=== PATIENT | female | born 1925 | race Caucasian/White ===

== ENCOUNTER 2017-03-05 07:51 | Emergency (ER) | payer SELFPAY ==
--- NOTE | 2017-03-05 08:16 | Emergency Department Record ---
History of Present Illness - General Chief Complaint: Difficulty Breathing Stated Complaint: SIA Time Seen by Provider: 03/05/17 08:04 Source: Patient Mode of Arrival: EMS Limitations: No limitations - History of Present Illness Initial Comments: The patient is here due to "not feeling right" this AM. It seems the patient recently placed her in a half-way and today she woke up and felt something may be wrong. She denied any SOB, CP, SIA, or CHRISTOPHER but due to being worried about her health she called 911. EMS found the patient anxious but very stable so they brought her to the ER. Presently the patient feels better and denies any pain, discomfort, breathing problems or any anxiety. MD Complaint: Anxiety Onset/Timin -: Hour(s), Unknown Severity: Moderate Improves With: Nothing Worsens With: Nothing Associated Symptoms: Denies other symptoms Treatments Prior to Arrival: None - Related Data Home Oxygen Therapy: No Home Medications Medication Instructions Recorded Confirmed Last Taken Amoxicillin 500Mg Capsule [Amoxil] 500 mg PO TID 03/05/17 03/05/17 Unknown Baclofen 10 mg PO ASDIR 03/05/17 03/05/17 Unknown Escitalopram Oxalate [Lexapro] 10 mg PO DAILY 03/05/17 03/05/17 Unknown Levothyroxine Sodium 125 mcg PO DAILY 03/05/17 03/05/17 Unknown Allergies Allergy/AdvReac Type Severity Reaction Status Date / Time No Known Drug Allergies Allergy Verified 03/05/17 08:03 Travel Screening - Travel/Exposure Within Last 30 Days Have you traveled within the last 30 days?: No Review of Systems Constitutional: Denies: Chills, Fever Eyes: Denies: Eye discharge ENT: Denies: Congestion Respiratory: Denies: Cough, Dyspnea Cardiovascular: Denies: Arrhythmia, Chest pain Past Medical History - SOCIAL HISTORY Smoking Status: Never smoker Alcohol Use: None Drug Use: None - RESPIRATORY Hx Respiratory Disorders: No - CARDIOVASCULAR Hx Cardio Disorders: No - NEURO Hx Neuro Disorders: No - GI Hx GI Disorders: No - Hx Genitourinary Disorders: No - ENDOCRINE Hx Endocrine Disorders: Yes Hx Thyroid Disease: Yes - MUSCULOSKELETAL Hx Musculoskeletal Disorders: No - PSYCH Hx Psych Problems: Yes Hx Anxiety: Yes Hx Depression: Yes - HEMATOLOGY/ONCOLOGY Hx Hematology/Oncology Disorders: No Family Medical History Any Significant Family History?: No Physical Exam - General General Appearance: Alert, Oriented x3, Cooperative, No acute distress - Head Head exam: Atraumatic, Normocephalic, Normal inspection - Eye Eye exam: Normal appearance, PERRL - ENT Throat exam: Normal inspection. negative: Tonsillar erythema, Tonsillar exudate - Neck Neck exam: Normal inspection, Full ROM. negative: Tenderness - Respiratory Respiratory exam: Normal lung sounds bilaterally. negative: Decreased breath sounds, Respiratory distress, Wheezes - Cardiovascular Cardiovascular Exam: Regular rate, Normal rhythm, Normal heart sounds. negative : Diastolic murmur, Systolic murmur - GI/Abdominal GI/Abdominal exam: Soft, Normal bowel sounds. negative: Tenderness - Extremities Extremities exam: Normal inspection, Full ROM, Normal capillary refill. negative: Tenderness - Neurological Neurological exam: Alert, Normal gait. negative: Abnormal gait, Motor sensory deficit Course Vital Signs 03/05/17 07:55 Temperature 98.4 F Pulse Rate 81 Respiratory 20 Rate Blood Pressure 147/76 Pulse Ox 99 - Reevaluation(s) Reevaluation #1: The patient is doing very well at this time. It seems the patient received Baclofen at the PCP's office a few days ago. Her daughter believes the medicine is making her feel funny. 03/05/17 08:49 Reevaluation #2: The patient is doing a little better. She did have another episode of the discomfort but she is having difficulty putting words to the complaint. Per her daughters the patient is not acting herself and they believe it may be due to the baclofen she started. The 2nd EKG was WNL's with no acute changes. 03/05/17 09:44 03/05/17 09:45 Medical Decision Making - Data Complexity MDM Data: Labs Ordered and/or Reviewed, X-Ray Ordered and/or Reviewed, EKG Ordered and/or Reviewed - Lab Data Result diagrams: 03/05/17 08:13 03/05/17 08:00 - EKG Data -: EKG Interpreted by Me EKG: No Acute Changes, Unchanged From Previous - Radiology Data Radiology results: Report reviewed (CXR: neg) Disposition Disposition: Admit Clinical Impression: Shortness of breath Disposition: Still a Patient at [facility] Decision to Admit: Admit from ER Decision to Admit Date: 03/05/17 Decision to Admit Time: 11:15 Accepting Physician: Marichuy Time Discussed w/Accepting Physician: 11:15 Condition: (2) Stable Forms: Patient Portal Access Time of Disposition: 11:15
[2017-03-05 08:17] LABS: BASO % 0.2 % (0-6); EOS % 5.3 % (0-6); GRAN % 55.6 % (47-80); HEMATOCRIT 36.4 % (35.0-47.0); HEMOGLOBIN 11.7 gm/dl (11.6-16.0); LYMPH % 26.9 % (16-45); MEAN CELL VOLUME 81.4 fl (81-97); MEAN CORPUSCULAR HEMOGLOBIN 26.2 pg (27-33); MEAN CORPUSCULAR HGB CONC 32.1 g/dl (32-36); MEAN PLATELET VOLUME 10.1 fl (7.4-10.4); PLATELET COUNT 201 K/uL (130-400); RED BLOOD COUNT 4.47 M/uL (3.80-5.40); RED CELL DISTRIBUTION WIDTH 15.1 % (11.5-14.5); WHITE BLOOD COUNT W/O DIFF 4.9 K/uL (4.2-12.2)
[2017-03-05 08:29] LABS: INR 0.94; PARTIAL THROMBOPLASTIN TIME 24.5 SECONDS (24.5-39.1); PROTHROMBIN TIME (PATIENT) 10.6 SECONDS (9.5-12.1)
[2017-03-05 08:30] LABS: ANION GAP 7.4 (7-16); BLOOD UREA NITROGEN 18 mg/dL (7-17); CARBON DIOXIDE 25.6 mmol/L (22-30); CREATINE PHOSPHOKINASE 32 U/L (30-135); CREATININE 0.9 mg/dL (0.52-1.04); EST GLOMERULAR FILTRATION RATE > 60 ml/min; GLUCOSE,RANDOM 109 mg/dL (70-110)
[2017-03-05 08:41] LABS: TROPONIN I 0.044 ng/mL (0.00-0.034)
== END 2017-03-05 08:35 | disposition still patient (30) ==
LOC: MERGE 07:51 → ER 07:51
DX: R06.02 Shortness of breath (principal)
CPT/HCPCS: 71020; 80048; 82550; 82553; 83880; 84484; 85025; 85610; 85730

== ENCOUNTER 2017-03-05 08:36 | Observation (INO) | payer MEDICARE ==
--- NOTE | 2017-03-05 09:02 | Emergency Department Record ---
History of Present Illness - General Chief Complaint: Shortness of breath Stated Complaint: SIA Time Seen by Provider: 03/05/17 08:43 Mode of Arrival: EMS - History of Present Illness -: Unknown Improves With: Nothing Worsens With: Nothing Associated Symptoms: Denies other symptoms Treatments Prior to Arrival: None - Related Data Home Oxygen Therapy: No Home Medications Medication Instructions Recorded Confirmed Last Taken Amoxicillin 500Mg Capsule [Amoxil] 500 mg PO TID 03/05/17 03/05/17 Unknown Allergies Allergy/AdvReac Type Severity Reaction Status Date / Time morphine AdvReac Intermediate VOMITING Verified 03/05/17 09:00 Travel Screening - Travel/Exposure Within Last 30 Days Have you traveled within the last 30 days?: No Past Medical History - SOCIAL HISTORY Smoking Status: Never smoker - RESPIRATORY Hx Respiratory Disorders: No - CARDIOVASCULAR Hx Cardio Disorders: Yes Hx Cardiac Cath: Yes (done 2013 -"heart was fine"-stress related) Comment:: hypercholesteremia - NEURO Hx Neuro Disorders: No - GI Hx GI Disorders: No - Hx Genitourinary Disorders: No - ENDOCRINE Hx Thyroid Disease: Yes - MUSCULOSKELETAL Hx Musculoskeletal Disorders: No - PSYCH Hx Psych Problems: No - HEMATOLOGY/ONCOLOGY Hx Hematology/Oncology Disorders: Yes Hx Cancer: Yes (skin) Hx Blood Transfusions: Yes Family Medical History Hx Heart Disease: Mother Course Vital Signs 03/05/17 08:40 Temperature 98.4 F Pulse Rate 81 Respiratory 20 Rate Blood Pressure 147/76 Pulse Ox 99 - Reevaluation(s) Reevaluation #1: The patient is doing very well at this time. She denies any pain or discomfort. It seems the Ativan helped her immensely and she feels much better at this time. She has no CP, SOB, or SIA and is resting comfortably. I did discuss the issues with Dr. Benedict and he does accept her admission to the hospital. 03/05/17 10:38 Disposition Disposition: Admit Clinical Impression: Shortness of breath Disposition: Still a Patient at [facility] Decision to Admit: Admit from ER Decision to Admit Date: 03/05/17 Decision to Admit Time: 10:40 Accepting Physician: Marichuy Time Discussed w/Accepting Physician: 10:40 Condition: (2) Stable Forms: Patient Portal Access Time of Disposition: 10:40
[2017-03-05] MEDS: LORAZEPAM 2 MG/ML VIAL IV ONE ×2 (09:29→09:33)
[2017-03-05 10:12] LABS: TROPONIN I 0.052 ng/mL (0.00-0.034)
[2017-03-05] MEDS ORDERED: ACETAMINOPHEN 500 MG TABLET PO PRN (11:48)
[2017-03-05] MEDS ORDERED: LORAZEPAM 2 MG/ML VIAL IV PRN (11:48)
[2017-03-05] MEDS: LEVOTHYROXINE SODIUM 125 MCG TABLET PO SCH (14:22)
[2017-03-05] MEDS: ESCITALOPRAM 10 MG TABLET PO SCH (14:22)
[2017-03-05 15:43] LABS: CKMB 1.1 ug/L (0-6); TROPONIN I 0.073 ng/mL (0.00-0.034)
[2017-03-05] MEDS ORDERED: AMOXICILLIN 500MG CAPSULE PO SCH (16:00)
[2017-03-05] MEDS: AMOXICILLIN 500 MG PO SCH (22:59)
[2017-03-06 00:35] LABS: CKMB 0.9 ug/L (0-6)
[2017-03-06 01:02] LABS: TROPONIN I 0.062 ng/mL (0.00-0.034)
[2017-03-06] MEDS: LEVOTHYROXINE SODIUM 125 MCG TABLET PO SCH (09:41)
[2017-03-06] MEDS: AMOXICILLIN 500 MG PO SCH (09:42)
[2017-03-06] MEDS: ESCITALOPRAM 10 MG TABLET PO SCH (09:42)
[2017-03-06] MEDS ORDERED: ESCITALOPRAM 10 MG TABLET PO SCH (10:15)
[2017-03-06] MEDS ORDERED: 0.9 % SODIUM CHLORIDE 10ML SYR IVP PRN (11:21)
--- NOTE | 2017-03-06 12:52 | Discharge Note ---
VTE H&P Assessment - Risk for VTE Risk for VTE: Yes Risk Level: Very Low Risk Assessment Date: 03/05/17 Risk Assessment Time: 11:00 VTE Orders Placed or Will Be Placed: No VTE Reason for No Prophylaxis: Not Indicated Discharge Medications - Discharge Medications Home Medications: Ambulatory Orders Amoxicillin 500Mg Capsule [Amoxil] 500 mg PO TID 03/05/17 [Last Taken Unknown] Discharge Note - Date Date of Discharge Note: 03/06/17 Condition: (2) Stable Forms: Patient Portal Access
--- NOTE | 2017-03-06 12:59 | Discharge Note ---
VTE H&P Assessment - Risk for VTE Risk for VTE: Yes Risk Level: Very Low Risk Assessment Date: 03/05/17 Risk Assessment Time: 11:00 VTE Orders Placed or Will Be Placed: No VTE Reason for No Prophylaxis: Not Indicated Discharge Medications - Discharge Medications Home Medications: Ambulatory Orders Amoxicillin 500Mg Capsule [Amoxil] 500 mg PO TID 03/05/17 [Last Taken Unknown] Discharge Note - Date Date of Discharge Note: 03/06/17 Condition: (2) Stable Additional Instructions: tylenol for pain 325mg every 6 hours follow up with Dr. Villanueva or Dr. Serra stop baclofen Referrals: Larisa Jones, NKaneP. [Primary Care Provider] - Forms: Patient Portal Access Activity at Discharge: Increase Activity as Tolerated Diet at Discharge: Regular Diet
[2017-03-07] MEDS ORDERED: LEVOTHYROXINE SODIUM 125 MCG TABLET PO SCH (07:00)
--- NOTE | 2017-03-07 10:27 | Discharge Summary ---
DATE OF ADMISSION: 03/05/2017 through the Emergency Department after being evaluated by Dr. Lindsey. DATE OF DISCHARGE: 03/06/2017 at 1700. This is an Observation Patient. DISCHARGE DIAGNOSES: 1. Decreased level of consciousness secondary to baclofen. 2. Adverse reaction to baclofen. 3. Indeterminant elevation of troponin I trending down on discharge. No signs of an MS. EKG showing no acute changes. CK-MB's were normal. 4. Osteoarthritis with deformity of the hands and total body pain from her arthritis. 5. Anxiety and depression because her is in assisted living and he wants to come home and she is getting a lot of stress from him. She cannot take care of him at home. 6. Hypothyroidism. 7. Dental infection, the right lower molar is infected, and on amoxicillin from the dentist 3 times a day 500 mg, and she has 3 more days to take it. I told her to finish the bottle when she gets home. ATTENDING PHYSICIAN: Rolf Benedict DO REASON FOR HOSPITALIZATION: This 89-year-old female was hyperventilating, short of breath, crying, tearful and confused, hallucinating according to the daughter, Tammi. She said that after taking the baclofen she may have taken a second dose according to the daughter, and this may have caused her to hallucinate and have problems with her mental status. She came into the Emergency Department and was given 1 mg of Ativan, which made her very sedated. She was admitted to the hospital for decreased level of consciousness, adverse reaction from baclofen, and indeterminant elevation of troponin I, which is trending down on the last dose of troponin I. Her CK-MB remained normal. Her EKGs remained normal. No acute changes. She has no chest pain or dyspnea. She does have total-body arthritic pain all over. She is not able to define exactly where the pain is. Her hands are deformed from the arthritis, and she aches all over. SIGNIFICANT FINDINGS FROM EXAMINATION: As stated, EKG showing no acute ST/T wave changes. The CK-MB's were normal. The troponin I's were indeterminant, trending down. THERAPY PROVIDED: The patient was observed. Vital signs were monitored. air sampling and monitoring. She is feeling much better today, walking around the room. She was able to feed herself, and she is tearful about her 's situation and she does not want to be home alone. The family member, Edith Peter, was in the room during my examination. She said somebody would stay with her or she would stay with one of the family members. There are 4 or 5 siblings around to help take care of her. HOSPITAL COURSE: Much improved. CONDITION ON DISCHARGE: Much improved. DISCHARGE INSTRUCTIONS: Followup with Dr. Lanier in 1 week. We are also going to set up an outpatient appointment with Dr. Rui Recio to do further cardiac testing as deemed necessary by the indeterminant elevation of troponin I. At this point, she could not walk on a treadmill. She is to follow up with Dr. Lanier or Ms. Jones in 1 week, Dr. Rui Recio when scheduled in the next week or two. Tylenol for pain only 325 mg 1 every 6 hours. Will stop the baclofen. Continue her levothyroxine 125 mcg daily. Continue the Lexapro 10 mg daily. Continue the amoxicillin 500 mg t.i.d. until gone. She has about 3 more days left in the bottle. Follow up with the dentist on that problem. CC: MD Larisa Taylor, JAKE TRIANA
--- NOTE | 2017-03-07 10:27 | History and Physical Report ---
DATE OF EVALUATION: 03/06/2017 DATE OF ADMISSION: 03/06/2017 CHIEF COMPLAINT: Confusion, decreased level of consciousness, and dyspnea. HISTORY OF PRESENT ILLNESS: This 89-year-old female was seen in the Emergency Department by Dr. Lindsey and totally evaluated in the Emergency Department by Dr. Lindsey. He called me to admit the patient because of troponin I's being in the indeterminant range and adverse reaction to baclofen medication. She possibly took a double or triple dose of the medication and was confused and disoriented, hallucinating. She was given baclofen by her primary doctor, Dr. Smyth, for back pain. She was initially, about a week ago, complaining of back and hip pain, and that is why the Ativan was started. She was also hyperventilating and having a panic attack when she came in the ER. Dr. Lindsey administered Ativan 1 mg IV, which sedated the patient for a long time, approximately 12 hours. This morning, she is acting very appropriately and back to herself. I went into the Emergency Department to evaluate her because she was being admitted in an observation status. She was sleeping. I woke her up. She was able to answer yes/no questions was all, and then she went back to sleep because of the baclofen and Ativan. Vital signs were stable. PAST MEDICAL HISTORY: She had a cardiac cath in 2013. Her heart was fine at that time. She also has hypercholesterolemia. She has some dizziness when she sits up quickly, most likely vasovagal dizziness. She has diverticulitis, GERD, hiatal hernia, hypothyroidism, rheumatoid and osteoarthritis, anxiety and depression, skin cancer, and she has had some blood transfusions in the past. PAST SURGICAL HISTORY: Hysterectomy, cholecystectomy, and melanoma surgery. MEDICATIONS ON ADMISSION: Levothyroxine 125 mcg daily, Lexapro 10 mg daily, the baclofen which was recently started 10 mg t.i.d., and she may have taken an extra dose of that, amoxicillin 500 mg t.i.d. I am not sure why she is on that. ALLERGIES: Morphine causes a vomiting reaction. Not a true allergy, mostly an adverse reaction. FAMILY PSYCHOSOCIAL HISTORY: Mother had heart disease. She never smoked. No alcohol or drug use. REVIEW OF SYSTEMS: (This was all obtained through the chart because she was too sedated to give any history). HEENT: No upper respiratory infection symptoms, cough, cold, or congestion. Cardiovascular: No chest pain, palpitations, or arrhythmias. Respiratory: No shortness of breath. Gastrointestinal: No nausea, vomiting, diarrhea, black stools, or bloody stools. Genitourinary: No dysuria, hematuria, frequency, or burning on urination. Musculoskeletal: She has arthritis. Neurologic: No CVA, paralysis, or paresthesias. Endocrine: She has hypothyroidism. No diabetes. Integument: She has had some melanoma in the past removed. PHYSICAL EXAMINATION: VITAL SIGNS: Height is 5 feet 1 inch. Weight is 167.3 pounds in the nursing assessment. Temperature 98.4. Pulse 81. Blood pressure 147/76. Respiratory rate 20. Pulse ox 99% on room air. HEENT: Pupils equal, round, and reactive to light and accommodation. Extraocular muscles intact. Throat is clear. Nose is clear. Tympanic membranes escalera. NECK: Supple. No jugular venous distention. No hepatojugular reflux. No carotid bruits. Thyroid is smooth. CARDIOVASCULAR: Regular rate and rhythm without murmurs, clicks, rubs, or gallops. RESPIRATORY: Clear to auscultation and percussion. ABDOMEN: Soft, nontender, no hepatosplenomegaly. No masses or tenderness. Bowel sounds active. No bruits. EXTREMITIES: No pitting edema. No cyanosis or clubbing. Full range of motion. Peripheral pulses good. BREASTS: Deferred. GENITALIA: Normal female genitalia. GYNECOLOGIC: Deferred. RECTAL: Deferred. NEUROLOGIC: Cranial nerves II-XII intact. No gross deficits. Sensation normal. Strength normal. Deep tendon reflexes equal bilaterally. Babinski is negative. MENTAL STATUS: She was sedated. Oriented to her name, but not time or place. Mostly it looks like the effect of the Ativan and the baclofen. IMPRESSION: 1. Decreased level of consciousness. 2. Confusion secondary to baclofen and Ativan. 3. Anxiety with a panic reaction as seen by EMS and their EMS report, and because her is being transferred to a senior care. 4. Adverse reaction to baclofen causing confusion and hallucinations. 5. Indeterminant elevation of troponin I. No chest pain. EKG: No acute changes seen on EKG. PLAN: Serial vital signs, cardiac monitoring, serial EKGs, serial cardiac enzymes, and further evaluation. MTDD
== END 2017-03-06 13:30 | disposition home or self-care (01) ==
LOC: ER 08:36 → MEDSURG 11:30
PROVIDERS: ADMIT Emergency Medicine; ATTEND Emergency Medicine
DX: R41.0 Disorientation, unspecified (principal); T42.8X5A Adverse effect of antiparkinsonism drugs and other central muscle-tone depressants, initial encounter; Y92.019 Unspecified place in single-family (private) house as the place of occurrence of the external cause; R79.89 Other specified abnormal findings of blood chemistry; E78.00 Pure hypercholesterolemia, unspecified; E03.9 Hypothyroidism, unspecified
CPT/HCPCS: 93041; 99285 ×2; 94760 ×3; 82550; 85025; 85730; 85610; 82553; 84484; 80048; 83880; 71020; 93005 ×2; 93010 ×2; G0378 ×2; J2060; 99223

== ENCOUNTER 2017-07-03 07:16 | Emergency (ER) | payer MEDICARE ==
[2017-07-03] MEDS ORDERED: METHYLPREDNISOLONE PF 125MG/VIAL IM ONE (07:43)
--- NOTE | 2017-07-03 07:54 | Emergency Department Record ---
History of Present Illness - General Chief complaint: Itching Stated complaint: ITCHING ON FACE,SHOULDER CHEST Time Seen by Provider: 07/03/17 07:34 Source: Patient Mode of Arrival: Ambulatory Limitations: No limitations - History of Present Illness Initial comments: pt has an itchy adrian face from forehead to nech. she was gardening yesterday complaint: Rash Onset/Timin -: Days(s) Location: Face, Neck Consistency: Constant Improves with: None Worsens with: None Context: None Associated symptoms: Itching Treatments Prior to Arrival: None - Related Data Home Medications Medication Instructions Recorded Confirmed Last Taken Escitalopram Oxalate [Lexapro] 5 mg PO DAILY 07/03/17 07/03/17 Unknown Previous Rx's Medication Instructions Recorded Methylprednisolone [Medrol Dose 4 mg PO ASDIR #1 tab.ds.pk 07/03/17 Pack] Allergies Allergy/AdvReac Type Severity Reaction Status Date / Time baclofen AdvReac Intermediate hallucinati Unverified 06/16/17 12:10 ng morphine AdvReac Intermediate VOMITING Unverified 06/16/17 12:10 Travel Screening - Travel/Exposure Within Last 30 Days Have you traveled within the last 30 days?: No Review of Systems Reviewed: No additional complaints except as noted below Constitutional: Reports: As per HPI. Denies: Chills, Fever, Malaise, Night sweats, Weakness, Weight change Eyes: Reports: As per HPI. Denies: Eye discharge, Eye pain, Photophobia, Vision change ENT: Reports: As per HPI. Denies: Congestion, Dental pain, Ear pain, Epistaxis , Hearing loss, Throat pain Respiratory: Reports: As per HPI. Denies: Cough, Dyspnea, Hemoptysis, Stridor, Wheezes Cardiovascular: Reports: As per HPI. Denies: Arrhythmia, Chest pain, Dyspnea on exertion, Edema, Murmurs, Orthopnea, Palpitations, Paroxysmal nocturnal dyspnea, Rheumatic Fever, Syncope Endocrine: Reports: As per HPI. Denies: Fatigue, Heat or cold intolerance, Polydipsia, Polyuria Gastrointestinal: Reports: As per HPI. Denies: Abdominal pain, Constipation, Diarrhea, Hematemesis, Hematochezia, Melena, Nausea, Vomiting Genitourinary: Reports: As per HPI. Denies: Abnormal menses, Discharge, Dyspareunia, Dysuria, Frequency, Hematuria, Incontinence, Retention, Urgency Musculoskeletal: Reports: As per HPI. Denies: Arthralgia, Back pain, Gout, Joint swelling, Myalgia, Neck pain Skin: Reports: As per HPI. Denies: Bruising, Change in color, Change in hair/ nails, Lesions, Pruritus, Rash Neurological: Reports: As per HPI. Denies: Abnormal gait, Confusion, Headache, Numbness, Paresthesias, Seizure, Tingling, Tremors, Vertigo, Weakness Psychiatric: Reports: As per HPI. Denies: Anxiety, Auditory hallucinations, Depression, Homicidal thoughts, Suicidal thoughts, Visual hallucinations Hematological/Lymphatic: Reports: As per HPI. Denies: Anemia, Blood Clots, Easy bleeding, Easy bruising, Swollen glands Past Medical History - SOCIAL HISTORY Smoking Status: Never smoker Alcohol Use: None Drug Use: None - RESPIRATORY Hx Respiratory Disorders: No Hx Pneumonia: Yes (6yrs ago) - CARDIOVASCULAR Hx Cardio Disorders: Yes Hx Cardiac Cath: Yes (done 2013 -"heart was fine"-stress related) Comment:: hypercholesteremia - NEURO Hx Neuro Disorders: No Hx Dizziness: Yes (when get up quickly) Hx Headaches: Yes (lately some) - GI Hx GI Disorders: No Hx Abdominal Pain: Yes Hx Diverticulitis: Yes Hx Reflux: Yes Hx Hiatal Hernia: Yes - Hx Genitourinary Disorders: No - ENDOCRINE Hx Endocrine Disorders: Yes Hx Thyroid Disease: Yes - MUSCULOSKELETAL Hx Musculoskeletal Disorders: No Hx Arthritis: Yes (RA & osteo) - PSYCH Hx Psych Problems: No Hx Anxiety: Yes Hx Depression: Yes - HEMATOLOGY/ONCOLOGY Hx Hematology/Oncology Disorders: Yes Hx Cancer: Yes (skin) Hx Blood Transfusions: Yes Family Medical History Any Significant Family History?: Yes Hx Heart Disease: Mother Physical Exam - General General Appearance: Alert, Oriented x3, Cooperative, Mild distress - Head Head exam: Normal inspection - Eye Eye exam: Normal appearance, PERRL, EOMI Pupils: Normal accommodation - ENT ENT exam: Normal exam, Mucous membranes moist, Normal external ear exam, Normal orophraynx Ear exam: Normal external inspection. negative: External canal tenderness Nasal Exam: Normal inspection. negative: Discharge, Sinus tenderness Mouth exam: Normal external inspection, Tongue normal Teeth exam: Normal inspection. negative: Dental caries Throat exam: Normal inspection. negative: Tonsillar erythema, Tonsillar exudate - Neck Neck exam: Normal inspection, Full ROM. negative: Tenderness - Respiratory Respiratory exam: Normal lung sounds bilaterally. negative: Respiratory distress - Cardiovascular Cardiovascular Exam: Regular rate, Normal rhythm, Normal heart sounds - GI/Abdominal GI/Abdominal exam: Soft, Normal bowel sounds. negative: Tenderness - Rectal Rectal exam: Deferred - exam: Deferred - Extremities Extremities exam: Normal inspection, Full ROM, Normal capillary refill. negative: Tenderness - Back Back exam: Reports: Normal inspection, Full ROM. Denies: Muscle spasm, Rash noted, Tenderness - Neurological Neurological exam: Alert, CN II-XII intact, Normal gait, Oriented X3 - Psychiatric Psychiatric exam: Normal affect, Normal mood - Skin Skin exam: Dry, Intact, Normal color, Rash, Warm Distribution of rash: Face Description of rash: Erythematous, Macular, Papular Course Vital Signs 07/03/17 07:18 Temperature 97.7 F Pulse Rate 109 H Respiratory 20 Rate Blood Pressure 151/80 Pulse Ox 97 Disposition Disposition: Discharge Clinical Impression: Poison sasha Disposition: Home, Self-Care Condition: (1) Good Instructions: Poison Sasha (ED), Cold Compress or Soak (ED) Additional Instructions: follow up with family doctor. return sooner if worse. benadryl every 6 hours as needed Prescriptions: Methylprednisolone [Medrol Dose Pack] 4 mg PO ASDIR #1 tab.ds.pk Forms: Patient Portal Access Quality - Quality Measures Quality Measures: N/A - Blood Pressure Screening Does Patient Have Any of the Following: No Blood Pressure Classification: Pre-Hypertensive BP Reading Systolic Measurement: 151 Diastolic Measurement: 80 Screening for High Blood Pressure: < Pre-Hypertensive BP, F/U Documented > [ [id number]] Pre-Hypertensive Follow-up Interventions: Referral to alternative/primary care provider.
[2017-07-03] MEDS ORDERED: DIPHENHYDRAMINE HCL 25 MG CAPSULE PO ONE (07:55)
== END 2017-07-03 08:11 | disposition home or self-care (01) ==
LOC: ER 07:16
DX: L23.7 Allergic contact dermatitis due to plants, except food (principal)
CPT/HCPCS: 96372; 99283; J2930